=== PATIENT | female | born 1985 ===

== ENCOUNTER 2024-09-28 12:47 | Emergency (ER) | payer OTHER, SELFPAY ==
[2024-09-28 12:59] VITALS: BP 161/91
--- NOTE | 2024-09-28 13:58 | ED.GENMED ---
History of Present Illness
General
Chief Complaint: DVT/Possible Blood Clot
Time Seen by Provider: 09/28/24 13:57
History of Present Illness
History of Present Illness:
TIME OF INITIAL ENCOUNTER:
HPI: The patient presents due to left calf pain. The patient was sent here by Ortho as she had an ACL repair about 2 weeks ago. She is no longer on baby aspirin. She has also had some heart palpitations. She has no shortness of breath. Ortho
sent her in here for further evaluation of left calf pain including ultrasound looking for DVT.
EXAM:
GENERAL: Well appearing in no distress
HEENT: Moist oral mucosa
CARDIAC: No murmurs, no ectopy
NEUROLOGIC: Excellent strength all extremities, no obvious coordination deficits
PSYCHIATRIC: Appropriate mental status, normal insight and judgement
EXTREMITIES: Long-leg brace to the left lower extremity, did not remove as patient states this was just examined by orthopedics earlier today decreased active range of motion at the left knee
SKIN: No rash, no lesions
NUMBER AND COMPLEXITY OF PROBLEMS ADDRESSED AT THE ENCOUNTER
� Chronic conditions affecting care: No significant past medical history, ACL repair August 2024
� Acute Exacerbation and/or Progression of Chronic Illness: This is an acute problem
� Differential Diagnosis includes: Postoperative swelling, postoperative complication, infection, DVT, PACs/PVCs
AMOUNT AND/OR COMPLEXITY OF DATA TO BE REVIEWED AND ANALYZED
� I performed an independent evaluation of and my interpretation is:
EKG: Sinus 73, normal axis, no acute ST abnormality, no ectopy
CT:
X-rays:
Laboratory Studies:
Other: Ultrasound of left lower extremity shows no DVT
� Review of other/old records: I reviewed records, operative report not in [facility] system at [place] (sees Yousuf Ha)
� Clinical information was obtained by an independent historian: I spoke to at bedside
� Prescriptions/Medications Considered but not given:
� Further testing considered but not performed:
RISK OF COMPLICATIONS AND/OR MORBIDITY OR MORTALITY OF PATIENT MANAGEMENT
� Social determinants of health affecting care: Lives at home
� Discussion with other providers:
� Escalation of care including admission/observation vs risk of discharge considered: The patient is well-appearing, ultrasound shows no DVT and EKG is normal.
ANY OTHER UPDATES:
Phy Exam
Physical Exam
Physical Exam:
See HPI
Course
Orders/Labs/Results
Orders:
Orders
09/28/24 12:54
Electrocardiogram (*1) Urgent
Reason for Study: Other
Other Reason for Exam: heart palpitations
09/28/24 12:56
EKG- Treatment ONCE
09/28/24 13:02
US Periph Venous LOWER Ext LT Urgent
Reason For Exam: s/p ACL repairj 09/14 + calf pain sent in r/o DVT
Vital Signs
Initial and Last Documented VS:
Initial Vital Signs
Temp Pulse Resp BP Pulse Ox
36.7 C 77 16 161/91 98
09/28/24 12:59 09/28/24 12:59 09/28/24 12:59 09/28/24 12:59 09/28/24 12:59
Last Documented Vital Signs
Temp Pulse Resp BP Pulse Ox
36.7 C 77 16 161/91 98
09/28/24 12:59 09/28/24 12:59 09/28/24 12:59 09/28/24 12:59 09/28/24 14:17
*Critical Care Note
Total Time (30-74mins, 75-104mins- exclusive of procedures): Not Applicable
ED Attending Note
-
Portions of this chart may have been created with voice recognition software.� Occasional wrong word or��sound alike� substitutions may have occurred due to the inherent limitations of voice recognition software.
Discharge Plan
Departure
Patient Disposition: Home (Routine Discharge)
Date of Disposition: 09/28/24
Time of Disposition: 14:21
Patient with high blood pressure during this ER visit?: Yes
Discharge Problem:
Pain of left calf, Palpitations
Instructions: Palpitations, BLOOD PRESSURE
Referrals:
Som Gómez I., DO [Family Provider] -
Activity Restrictions/Additional Instructions:
Ultrasound imaging shows no blood clot. EKG is normal. Return here if worse or other concerns. Return here if worse or other concerns.
Interventions
Interventions:
*Risk Screen - Suicide Last Done: 09/28/24 12:59
*Neglect/Abuse Screening Last Done: 09/28/24 12:59
ED- Cardiac Assessment Last Done: 09/28/24 14:17
ED- Pulmonary Assessment Last Done: 09/28/24 14:17
ED-Peripheral Vascular Assessment Last Done: 09/28/24 14:19
ED-Skin Assessment Last Done: 09/28/24 14:17
Discharge Date and Time
Print Language: WELSH
[2024-09-28 14:17] VITALS: BMI 18.3
== END 2024-09-28 14:35 | disposition home or self-care (01) ==
LOC: EMR 12:47
PROVIDERS: EMERGENCY PHYSICIAN Emergency Medicine; FAMILY PHYSICIAN Internal Medicine
DX: M79.662 Pain in left lower leg (principal); R00.2 Palpitations
CPT/HCPCS: 99284; 93005; 93971